=== PATIENT | female | born 1985 | race Hispanic/Latino ===

== ENCOUNTER 2016-11-15 06:17 | Emergency (ER) | payer OTHER ==
[2016-11-15 06:17] VITALS: BMI 39.9
[2016-11-15 06:28] VITALS: RESP 18; TEMP 98
--- NOTE | 2016-11-15 07:27 | C.PDOC ---
History Of Present Illness 31 y/o female presents to the ED with complains of migraine headache x1 hour. Pt took furocet at home without relief. Pt also reports vomiting. Denies visual changes, weakness or any other complaints. PSHx . LMP 10/30/16. Chief Complaint (Nursing): Headache History Per: Patient History/Exam Limitations: no limitations Onset/Duration Of Symptoms: Mins Current Symptoms Are (Timing): Still Present Severity: Moderate Quality: "Pain" Preceeding Symptoms: denies: Visual Disturbances Associated Symptoms: Vomiting. denies: Blurred Vision, Extremity Weakness Recent travel outside of the [place]: No Past Medical History Reviewed: Historical Data, Nursing Documentation, Vital Signs Vital Signs: Last Vital Signs Temp 98 F 11/15/16 06:26 Pulse 88 11/15/16 06:26 Resp 18 11/15/16 06:26 BP 127/89 11/15/16 06:26 Pulse Ox 99 11/15/16 07:33 - Medical History PMH: Anemia, Anxiety, Depression (AT TIMES NO MEDS), Hypercholesterolemia, Migraine Surgical History: - [facility] Procedures CLOSURE SKIN & SUBCUTANEOUS NEC (02/12/14) Family History: States: Unknown Family Hx - Social History Hx Tobacco Use: No Hx Alcohol Use: No Hx Substance Use: No - Immunization History Hx Tetanus Toxoid Vaccination: No Hx Influenza Vaccination: No Hx Pneumococcal Vaccination: No Review Of Systems Except As Marked, All Systems Reviewed And Found Negative. Constitutional: Negative for: Fever Eyes: Negative for: Vision Change Gastrointestinal: Positive for: Vomiting Neurological: Positive for: Headache. Negative for: Weakness Physical Exam - Physical Exam Appears: Non-toxic, In Acute Distress (moderate distress secondary to pain) Skin: Warm, Dry, No Rash Head: Atraumatic, Normacephalic Eye(s): bilateral: Normal Inspection, PERRL, EOMI Oral Mucosa: Moist Neck: Normal, Normal ROM, Supple Chest: Symmetrical Cardiovascular: Rhythm Regular, No Murmur Respiratory: Normal Breath Sounds, No Rales, No Rhonchi, No Wheezing Gastrointestinal/Abdominal: Normal Exam Extremity: Normal ROM Extremity: Bilateral: Atraumatic Neurological/Psych: Oriented x3, Normal Speech, Normal Cognition, Normal Motor, Normal Sensation ED Course And Treatment - Laboratory Results Result Diagrams: 11/15/16 07:47 11/15/16 07:47 Lab Interpretation: Normal O2 Sat by Pulse Oximetry: 99 (room air) Pulse Ox Interpretation: Normal Progress Note: Plan: IV fluids, reglan, toradol, benadryl. On re-evaluation VSS , feeling better, neuro intact, ambulating with steady gait. Hcg: neg Reassessment Condition: Improved Disposition Counseled Patient/Family Regarding: Studies Performed, Diagnosis, Need For Followup - Disposition Referrals: Gabi Nur MD [Primary Care Provider] - Disposition Time: 09:45 Condition: IMPROVED Instructions: Migraine Headache (ED) Print Language: MICRONESIAN - POA Present On Arrival: None - Clinical Impression Clinical Impression: Migraine - PA / [employer] / Resident Statement MD/DO has reviewed & agrees with the documentation as recorded. - Scribe Statement The provider has reviewed the documentation as recorded by the Scribmynor Lester All medical record entries made by the Scribe were at my direction and personally dictated by me. I have reviewed the chart and agree that the record accurately reflects my personal performance of the history, physical exam, medical decision making, and the department course for this patient. I have also personally directed, reviewed, and agree with the discharge instructions and disposition.
[2016-11-15] MEDS ORDERED: DiphenhydrAMINE 50 mg/ml Inj IVP STA (07:28)
[2016-11-15] MEDS ORDERED: Sodium Chloride 0.9% 1,000 ML IV ONE (07:28)
[2016-11-15] MEDS ORDERED: DiphenhydrAMINE 50 mg/ml Inj ONE (07:35)
[2016-11-15 07:52] LABS: BASO # 0.1 K/uL (0.0-0.2); BASO % 0.7 % (0.0-2.0); EOS # 0.1 K/uL (0.0-0.7); EOS % 1.2 % (0.0-4.0); HEMATOCRIT 39.3 % (34.0-47.0); LYMPH # 2.3 K/uL (1.0-4.3); LYMPH % 22.4 % (20.0-40.0); MEAN CORPUSCULAR HEMOGLOBIN 29.5 pg (27.0-31.0); MEAN CORPUSCULAR HGB CONC 34.4 g/dL (33.0-37.0); MEAN PLATELET VOLUME 8.2 fL (7.2-11.7); MONO # 0.9 K/uL (0.0-0.8); MONO % 8.5 % (0.0-10.0); RED CELL DISTRIBUTION WIDTH 13.5 % (11.5-14.5); WHITE BLOOD COUNT 10.3 K/uL (4.8-10.8)
[2016-11-15 07:54] LABS: MEAN CELL VOLUME 85.8 fL (81.0-99.0)
[2016-11-15 07:59] LABS: CHLORIDE 101 mmol/L (98-107)
[2016-11-15 08:00] LABS: POTASSIUM 3.7 mmol/L (3.6-5.2); SODIUM 138 mmol/L (132-148)
[2016-11-15 08:02] LABS: GFR AFRICAN-AMERICAN > 60
[2016-11-15 08:03] LABS: BLOOD UREA NITROGEN 13 mg/dL (7-17); CALCIUM 8.8 mg/dl (8.6-10.4); CARBON DIOXIDE 26 mmol/L (22-30); GLUCOSE,RANDOM 117 mg/dL (65-105)
[2016-11-15 09:52] VITALS: BP 108/71; PULSE 81; O2SAT 100
== END 2016-11-15 09:52 | disposition home or self-care (01) ==
LOC: SUPCPDRO 06:17 → C.ER 06:17
DX: G43.909 Migraine, unspecified, not intractable, without status migrainosus (principal)
CPT/HCPCS: 80048; 85025; 96365; 96375; 99285; J1200; J1885; J2765; J7040

== ENCOUNTER 2017-10-17 09:50 | Emergency (ER) | payer OTHER ==
[2017-10-17 09:50] VITALS: BMI 39.9
[2017-10-17 10:06] VITALS: BP 126/85; PULSE 79; RESP 16; TEMP 98.1; O2SAT 98
--- NOTE | 2017-10-17 11:25 | C.PDOC ---
History Of Present Illness 32 y/o female presents to the ED complaining of lower back pain for 1 day. Patient states she left work today due to worsening pain. She took a hot shower yesterday, and pain worsened. Also took ibuprofen and tramadol at home without relief. Time Seen by Provider: 10/17/17 11:03 Chief Complaint (Nursing): Back Pain History Per: Patient History/Exam Limitations: no limitations Onset/Duration Of Symptoms: Days Current Symptoms Are (Timing): Still Present Past Medical History Reviewed: Historical Data, Nursing Documentation, Vital Signs Vital Signs: Last Vital Signs Temp 98.1 F 10/17/17 10:03 Pulse 79 10/17/17 10:03 Resp 16 10/17/17 10:03 BP 126/85 10/17/17 10:03 Pulse Ox 98 10/17/17 12:16 - Medical History PMH: Anemia, Anxiety, Depression (AT TIMES NO MEDS), Hypercholesterolemia, Hypothyroidism, Migraine Denies: Chronic Kidney Disease Surgical History: (x2) - [facility] Procedures CLOSURE SKIN & SUBCUTANEOUS NEC (02/12/14) Family History: States: Hypertension - Social History Hx Tobacco Use: No Hx Alcohol Use: No Hx Substance Use: No - Immunization History Hx Tetanus Toxoid Vaccination: No Hx Influenza Vaccination: No Hx Pneumococcal Vaccination: No Review Of Systems Except As Marked, All Systems Reviewed And Found Negative. Constitutional: Negative for: Fever, Chills Genitourinary: Negative for: Dysuria, Incontinence, Hematuria Musculoskeletal: Positive for: Back Pain Neurological: Negative for: Weakness, Numbness Physical Exam - Physical Exam Appears: Non-toxic, No Acute Distress, Other (Obese female) Skin: Normal Color, Warm, Dry Head: Atraumatic, Normacephalic Eye(s): bilateral: Normal Inspection, PERRL, EOMI Oral Mucosa: Moist Neck: Normal ROM, Supple Chest: Symmetrical Back: No Vertebral Tenderness, Paraspinal Tenderness (mild tenderness to bilateral paralumbar areas) Extremity: Bilateral: Atraumatic, Normal Color And Temperature, Normal ROM Neurological/Psych: Oriented x3, Normal Speech, No Other (focal deficits) ED Course And Treatment O2 Sat by Pulse Oximetry: 98 (RA) Pulse Ox Interpretation: Normal Medical Decision Making Medical Decision Making: Impression: Lower back pain x 2 days, worse with heat therapies improved with motrin/ice in ED ok for outpatient f/u. Disposition Doctor Will See Patient In The: Office Counseled Patient/Family Regarding: Studies Performed, Diagnosis - Disposition Referrals: Seng Borjas MD [Staff Provider] - Disposition: HOME/ ROUTINE Disposition Time: 11:25 Condition: GOOD Additional Instructions: bolsa de hielo 1/2 hour per hour, nada caliente Ibuprofeno 400-600 mg cada 6 horas natalia necessario Sigue con Dr. Borjas Instructions: Lumbar Muscle Strain Forms: [employer] (Nepali), Work Excuse Print Language: NORTHERN IRISH - Clinical Impression Clinical Impression: Low back strain - Scribe Statement The provider has reviewed the documentation as recorded by the Scribe (Amanda Vasquez) Provider Attestation: All medical record entries made by the Scribe were at my direction and personally dictated by me. I have reviewed the chart and agree that the record accurately reflects my personal performance of the history, physical exam, medical decision making, and the department course for this patient. I have also personally directed, reviewed, and agree with the discharge instructions and disposition.
== END 2017-10-17 11:35 | disposition home or self-care (01) ==
LOC: C.ER 09:50
DX: S39.012A Strain of muscle, fascia and tendon of lower back, initial encounter (principal); X58.XXXA Exposure to other specified factors, initial encounter; Y92.9 Unspecified place or not applicable

== ENCOUNTER 2017-12-22 22:52 | Emergency (ER) | payer OTHER ==
[2017-12-22 23:03] VITALS: BMI 40.3
[2017-12-22 23:11] VITALS: RESP 16; TEMP 98.7; O2SAT 99
[2017-12-22 23:57] VITALS: BP 119/48; PULSE 79
[2017-12-23 00:35] LABS: HEMOGLOBIN 13.2 g/dL (11.0-16.0); RED CELL DISTRIBUTION WIDTH 15.2 % (11.5-14.5)
[2017-12-23 00:46] LABS: BASO # 0.1 K/uL (0.0-0.2); BASO % 1.3 % (0.0-2.0); EOS # 0.2 K/uL (0.0-0.7); EOS % 3.7 % (0.0-4.0); MEAN CELL VOLUME 85.9 fL (81.0-99.0); MEAN CORPUSCULAR HEMOGLOBIN 29.7 pg (27.0-31.0); MEAN CORPUSCULAR HGB CONC 34.6 g/dL (33.0-37.0); MEAN PLATELET VOLUME 8.8 fL (7.2-11.7); MONO # 0.5 K/uL (0.0-0.8); MONO % 9.1 % (0.0-10.0); NEUT # 2.5 K/uL (1.8-7.0); NEUT % 46.9 % (50.0-75.0); NRBC % 0.1 % (0.0-2.0); RBC 4.45 Mil/uL (3.80-5.20); WHITE BLOOD COUNT 5.2 K/uL (4.8-10.8)
[2017-12-23 00:47] LABS: ALB/GLOB RATIO 1.3 (1.0-2.1); ALBUMIN 4.1 g/dL (3.5-5.0); ALT/SGPT 44 U/L (9-52); AST/SGOT 27 U/L (14-36); BLOOD UREA NITROGEN 14 mg/dL (7-17); GFR AFRICAN-AMERICAN > 60; GFR NON-AFRICAN AMERICAN > 60
--- NOTE | 2017-12-23 00:49 | C.PDOC ---
History Of Present Illness 32 year old female presents to the ED c/o chest pain that started approximately 1 hour [employer] WORK[employer]EL[employer]. Patient reports her pain is constant and worsens with deep breathing and position changes. Patient denies injury, fall, trauma, SOB, numbness, weakness, headache, blurry vision. Chief Complaint (Nursing): Chest Pain History Per: Patient History/Exam Limitations: no limitations Onset/Duration Of Symptoms: Hrs (1) Current Symptoms Are (Timing): Better Quality: "Pain" Exacerbating Factors: Deep Breathing Recent travel outside of the [place]: No Additional History Per: Patient Past Medical History Reviewed: Historical Data, Nursing Documentation, Vital Signs Vital Signs: Last Vital Signs Temp 98.7 F 12/22/17 23:10 Pulse 79 12/22/17 23:51 Resp 16 12/22/17 23:10 BP 119/48 L 12/22/17 23:51 Pulse Ox 99 12/23/17 02:32 - Medical History PMH: Anemia, Anxiety, Depression (AT TIMES NO MEDS), Hypercholesterolemia, Hypothyroidism, Migraine Denies: Chronic Kidney Disease Surgical History: (x2) - [facility] Procedures CLOSURE SKIN & SUBCUTANEOUS NEC (02/12/14) Family History: States: Hypertension Denies: Unknown Family Hx - Social History Hx Tobacco Use: No Hx Alcohol Use: No Hx Substance Use: No - Immunization History Hx Tetanus Toxoid Vaccination: No Hx Influenza Vaccination: No Hx Pneumococcal Vaccination: No Review Of Systems Constitutional: Negative for: Fever, Chills Cardiovascular: Positive for: Chest Pain. Negative for: Palpitations Respiratory: Negative for: Cough, Shortness of Breath Gastrointestinal: Negative for: Nausea, Vomiting Musculoskeletal: Negative for: Back Pain Skin: Negative for: Rash Physical Exam - Physical Exam Appears: Non-toxic, No Acute Distress Skin: Normal Color, Warm, Dry Head: Atraumatic, Normacephalic Eye(s): bilateral: Normal Inspection Oral Mucosa: Moist Neck: Normal ROM, Supple Chest: Symmetrical Cardiovascular: Rhythm Regular Respiratory: Normal Breath Sounds, No Rales, No Rhonchi, No Wheezing Gastrointestinal/Abdominal: Soft, No Tenderness, No Guarding, No Rebound Extremity: Normal ROM, No Tenderness, No Swelling Neurological/Psych: Oriented x3, Normal Speech Gait: Steady ED Course And Treatment - Laboratory Results Result Diagrams: 12/23/17 00:32 07/08/18 00:32 ECG: Interpreted By Me, Viewed By Me ECG Rhythm: Sinus Rhythm ECG Interpretation: Normal Rate From EC (BPM) O2 Sat by Pulse Oximetry: 99 (ON RA) Pulse Ox Interpretation: Normal Medical Decision Making Medical Decision Making: Impression: atypical CP Plan: * EKG * Labs Patient refused further testing and CXR wants to go home. Disposition - Disposition Referrals: [facility] [Outside] Disposition: HOME/ ROUTINE Disposition Time: 02:33 Condition: GOOD Prescriptions: Naproxen [Naprosyn] 500 mg PO BID #20 tablet Instructions: Costochondritis Forms: [employer](Cabeo) (Thai) Print Language: KAZAKH - Clinical Impression Clinical Impression: Pleuritic pain, Chest wall pain - Scribe Statement The provider has reviewed the documentation as recorded by the Scribe Reji Gil All medical record entries made by the Scribe were at my direction and personally dictated by me. I have reviewed the chart and agree that the record accurately reflects my personal performance of the history, physical exam, medical decision making, and the department course for this patient. I have also personally directed, reviewed, and agree with the discharge instructions and disposition.
[2017-12-23 00:59] LABS: CK-MB 0.61 ng/mL (0.0-3.38)
== END 2017-12-23 01:17 | disposition home or self-care (01) ==
LOC: C.ER 22:52
DX: R07.89 Other chest pain (principal); F41.9 Anxiety disorder, unspecified; E78.00 Pure hypercholesterolemia, unspecified

== ENCOUNTER 2018-03-24 08:41 | Emergency (ER) | payer OTHER ==
[2018-03-24 08:42] VITALS: BMI 40.3
[2018-03-24 09:03] VITALS: RESP 17
[2018-03-24] MEDS ORDERED: Sodium Chloride 0.9% 1,000 ML IV ONE (09:10)
[2018-03-24] MEDS ORDERED: Sodium Chloride 0.9% 1,000 ML ONE (09:16)
--- NOTE | 2018-03-24 09:45 | C.PDOC ---
History Of Present Illness 32 year old female, with past medical history of hypercholesterolemia, hypothyroidism, and migraine, presents to ED for evaluation of frontal headache for the last 3 days. Notes this is not the worst headache of her life, reports headache is 8/10 in severity. She reports taking Fioricet without improvement. Denies nausea, vomiting, visual changes, photophobia, weakness, numbness, cold symptoms, or fever. Time Seen by Provider: 03/24/18 08:54 Chief Complaint (Nursing): Headache History Per: Patient History/Exam Limitations: no limitations Onset/Duration Of Symptoms: Days Current Symptoms Are (Timing): Still Present Preceeding Symptoms: denies: Visual Disturbances Associated Symptoms: denies: Photophobia, Blurred Vision, Nausea, Vomiting, Extremity Weakness Recent travel outside of the [place]: No Additional History Per: Patient Past Medical History Reviewed: Historical Data, Nursing Documentation, Vital Signs Vital Signs: Last Vital Signs Temp 98.7 F 03/24/18 08:45 Pulse 83 03/24/18 09:01 Resp 17 03/24/18 09:01 BP 125/77 03/24/18 09:01 Pulse Ox 98 03/24/18 09:01 - Medical History PMH: Anemia, Anxiety, Depression (AT TIMES NO MEDS), Hypercholesterolemia, Hypothyroidism, Migraine Denies: Chronic Kidney Disease Surgical History: (x2) - [facility] Procedures CLOSURE SKIN & SUBCUTANEOUS NEC (02/12/14) Family History: States: Hypertension Denies: Unknown Family Hx - Social History Hx Tobacco Use: No Hx Alcohol Use: No Hx Substance Use: No - Immunization History Hx Tetanus Toxoid Vaccination: No Hx Influenza Vaccination: No Hx Pneumococcal Vaccination: No Review Of Systems Except As Marked, All Systems Reviewed And Found Negative. Constitutional: Negative for: Fever, Chills Eyes: Negative for: Vision Change ENT: Negative for: Ear Pain, Nose Discharge, Nose Congestion, Throat Pain Cardiovascular: Negative for: Chest Pain Respiratory: Negative for: Cough, Shortness of Breath Gastrointestinal: Negative for: Nausea, Vomiting Neurological: Positive for: Headache. Negative for: Weakness, Numbness, Change in Speech, Dizziness Physical Exam - Physical Exam Appears: Non-toxic, No Acute Distress Skin: Normal Color, Warm, Dry Head: Atraumatic, Normacephalic, No Tenderness Eye(s): bilateral: Normal Inspection, PERRL, EOMI Oral Mucosa: Moist Neck: Normal ROM, Supple Chest: Symmetrical Cardiovascular: Rhythm Regular, No Murmur Respiratory: Normal Breath Sounds, No Rales, No Rhonchi, No Wheezing Gastrointestinal/Abdominal: Soft, No Tenderness Extremity: Normal ROM, No Deformity Neurological/Psych: Oriented x3, Normal Speech, Normal Cranial Nerves, No Cerebellar Signs, No Other (no focal deficits) ED Course And Treatment O2 Sat by Pulse Oximetry: 98 (on RA) Pulse Ox Interpretation: Normal Medical Decision Making Medical Decision Making: Impression: 32 year old female with frontal headache for 3 days. Plan: * Reglan * Toradol * IV fluids Re-Assess: On reassessment, patient is resting comfortably, is tolerating PO, and pain has improved. Patient has no neurologic deficit, photophobia, rash, fever, or nuchal rigidity. Patient was instructed to follow up with physician/clinic in 1-2 days. Disposition Counseled Patient/Family Regarding: Diagnosis, Need For Followup, Rx Given - Disposition Referrals: Seng Borjas MD [Staff Provider] - Disposition: HOME/ ROUTINE Disposition Time: 10:14 Condition: STABLE Additional Instructions: Follow up with your primary medical doctor or clinic in 2-5 days for further evaluation. Take medications as prescribed. Return to the emergency department at any time if symptoms persist or worsen. 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 - Scribe Statement The provider has reviewed the documentation as recorded by the Scribe Carole Borjas All medical record entries made by the Scribe were at my direction and personally dictated by me. I have reviewed the chart and agree that the record accurately reflects my personal performance of the history, physical exam, medical decision making, and the department course for this patient. I have also personally directed, reviewed, and agree with the discharge instructions and d isposition.
[2018-03-24 10:31] VITALS: BP 116/73; PULSE 73; TEMP 98.2
[2018-03-24 10:45] VITALS: O2SAT 98
== END 2018-03-24 10:31 | disposition home or self-care (01) ==
LOC: C.ER 08:41
DX: R51 Headache (principal)
CPT/HCPCS: 96361; 96374; 96375; 99285; J1885; J2765; J7030